=== PATIENT | male | born 1990 | race Hispanic/Latino ===

== ENCOUNTER 2018-12-03 15:27 | Emergency (ER) | payer SELFPAY | END 2018-12-03 16:12 | disposition home or self-care (01) | LOC: ERS 15:27 | DX: J01.90 Acute sinusitis, unspecified (principal); F31.9 Bipolar disorder, unspecified | CPT/HCPCS: 99283 ==

== ENCOUNTER 2019-12-06 20:03 | Emergency (ER) | payer OTHER ==
[2019-12-06] MEDS ORDERED: HYDROcodone/Acetaminophen 5/325 mg Tablet ONE (21:54)
[2019-12-06] MEDS ORDERED: Ibuprofen 800 MG TAB ONE (22:21)
== END 2019-12-06 22:25 | disposition home or self-care (01) ==
LOC: ERS 20:03
DX: L02.31 Cutaneous abscess of buttock (principal); L03.317 Cellulitis of buttock; E11.9 Type 2 diabetes mellitus without complications; F31.9 Bipolar disorder, unspecified
CPT/HCPCS: 99283

== ENCOUNTER 2019-12-09 07:45 | Day surgery (SDC) | payer OTHER ==
[2019-12-08 17:10] VITALS: BMI 29.7
[2019-12-09] MEDS ORDERED: ceFOXitin 2 GM/50 ML Duplex BAG ONE (08:54)
[2019-12-09 09:08] LABS: #Basophils 0.1 thou/uL (0.0-0.2); #Eosinphils 0.4 thou/uL (0.0-0.7); #Monocytes 0.5 thou/uL (0.11-0.59); #Neutrophils 5.6 thou/uL (1.40-6.50); %Basophils 0.6 % (0.0-1.0); %Eosinophils 4.5 % (0.0-10.0); %Lymphocytes 23.1 % (21.0-51.0); %Monocytes 5.6 % (0.0-10.0); %Neutrophils 66.2 % (42.0-75.0); Hemoglobin 15.3 g/dL (14.0-18.0); Mean Corpuscular HGB CONC 32.6 g/dL (32.0-36.0); Mean Corpuscular Hemoglobin 30.1 pg (27.0-31.0); Mean Corpuscular Volume 92.4 fL (78.0-98.0); Mean Platelet Volume 9.2 fL (7.4-10.4); Platelet Count 353 thou/uL (130-400); RBC Distribution Width 10.9 % (11.5-14.5); White Blood Cell (WBC) Count 8.4 thou/uL (4.8-10.8)
[2019-12-09 09:27] LABS: ALT (SGPT) 41 U/L (8-55); AST (SGOT) 41 U/L (5-34); Albumin 3.7 g/dL (3.5-5.0); Alkaline Phosphatase 116 U/L (40-110); Anion Gap 14 mmol/L (10-20); BUN (Urea Nitrogen) 13 mg/dL (8.9-20.6); Bilirubin, Total 0.3 mg/dL (0.2-1.2); Calc. Creatinine Clearance 147 mL/min (70-130); Calcium 9.7 mg/dL (7.8-10.44); Carbon Dioxide 28 mmol/L (22-29); Chloride 98 mmol/L (98-107); Estimated GFR-MDRD Greater than 90; Globulin 3.6 g/dL (2.4-3.5); Glucose 365 mg/dL (70-105); Potassium 4.6 mmol/L (3.5-5.1); Protein, Total 7.3 g/dL (6.0-8.3); Sodium 135 mmol/L (136-145)
[2019-12-09] MEDS ORDERED: Ketorolac Tromethamine 30 MG/ML VIAL ONE (09:29)
[2019-12-09] MEDS ORDERED: Glycopyrrolate 0.2 MG/ML 5 ML SYRINGE ONE (09:29)
[2019-12-09] MEDS ORDERED: Ondansetron PF 4 MG/2 ML Vial ONE (09:29)
[2019-12-09] MEDS ORDERED: PROPOFOL 200 MG/20 ML VIAL ONE (09:29)
[2019-12-09] MEDS ORDERED: Lidocaine 1% PF 5 ML VIAL ONE (09:29)
[2019-12-09] MEDS ORDERED: Fentanyl 100 MCG/2 ML VIAL ONE ×4 (09:37→12:27)
[2019-12-09] MEDS ORDERED: Insulin Regular 300 UNITS/3 ML VIAL ONE (10:12)
[2019-12-09] MEDS ORDERED: Morphine 4 MG/ML VIAL ONE (11:57)
[2019-12-09] MEDS ORDERED: Morphine 2 MG/ML SYRINGE ONE ×3 (12:16→12:37)
[2019-12-09] MEDS ORDERED: Promethazine HCl 25 MG/ML VIAL ONE (13:04)
--- NOTE | 2019-12-09 14:14 | OP ---
DATE OF PROCEDURE: 12/09/2019 PREOPERATIVE DIAGNOSIS: Perirectal abscess. PROCEDURE PERFORMED: Incision, drainage, and debridement of large gluteal abscess, left gluteus. INDICATIONS: This is a 29-year-old diabetic male with a 10-day history of an abscess on his left gluteus that was apparently taken care of by the [facility] Practice [facility]. Continue to progress with fever and increasing pain, had necrotic tissue coming out. FINDINGS: An 8 x 8 cm cavity with necrotic skin and subcutaneous tissue. DESCRIPTION OF PROCEDURE: After informed consent was obtained, the patient was taken to the operating room and given general endotracheal anesthesia. He was placed in the prone leah-knife position. The gluteal area was taped. The skin was prepped and draped in usual fashion. The necrotic tissue was excised. There was a large opening that connected to a second opening. This was connected with an elliptical incision revealing about an 8-cm cavity. Hemostasis was achieved with electrocautery. The pulse coconut boiler was used to irrigate the subcu. Hemostasis was again controlled with electrocautery. Intraoperative proctoscopy was performed utilizing a bivalve anal retractor. I did not see any internal opening that communicated, even though there was only about 3 cm from the anal verge. The wound was packed open with Betadine gauze, covered by dry gauze, ABD, and katelyn pants. The patient tolerated the procedure well, transferred to Recovery in good condition. Job ID: [id number]
[2019-12-09] MEDS ORDERED: HYDROcodone/Acetaminophen 5/325 mg Tablet ONE (14:23)
== END 2019-12-09 15:13 | disposition home or self-care (01) ==
LOC: SDC 07:45
PROVIDERS: ATTEND Surgery
PROC: 0D9P3ZZ Drainage of Rectum, Percutaneous Approach (ICD-10-PCS; principal; 2019-12-09)
DX: K61.1 Rectal abscess (principal); E11.9 Type 2 diabetes mellitus without complications; E78.5 Hyperlipidemia, unspecified; I10 Essential (primary) hypertension; F41.9 Anxiety disorder, unspecified; F32.9 Major depressive disorder, single episode, unspecified; Z79.899 Other long term (current) drug therapy; Z87.891 Personal history of nicotine dependence; Z88.2 Allergy status to sulfonamides
CPT/HCPCS: 36415; 36416; 80053; 85025; J0694; J1815; J1885; J2001; J2270; J2405; J2550; J2704; J3010

== ENCOUNTER 2024-05-03 19:12 | Emergency (ER) | payer SELFPAY | END 2024-05-03 21:55 | disposition home or self-care (01) | LOC: ERS 19:12 | DX: H61.21 Impacted cerumen, right ear (principal); E11.9 Type 2 diabetes mellitus without complications | CPT/HCPCS: 69209; 99283 ==

== ENCOUNTER 2024-06-20 17:01 | Emergency (ER) | payer SELFPAY | END 2024-06-20 18:17 | disposition home or self-care (01) | LOC: ERS 17:01 | DX: R22.0 Localized swelling, mass and lump, head (principal); J01.00 Acute maxillary sinusitis, unspecified | CPT/HCPCS: 99282 ==